=== PATIENT | male | born 1940 | race Caucasian/White ===

== ENCOUNTER 2017-01-04 08:42 | Emergency (ER) | payer OTHER, BC ==
[~2017-01-04] VITALS: Ht 172.7 cm; Wt 81.7 kg
[2017-01-04] MEDS ORDERED: LIPITOR 20 MG T20 M1 PO (09:07)
[2017-01-04] MEDS ORDERED: LEVITRA20 MG PO (09:07)
[2017-01-04] MEDS ORDERED: DEPO-TESTO200 MG/1 M IM (09:08)
[2017-01-04] MEDS ORDERED: VITAMIN D1000 UNI1 PO (09:09)
[2017-01-04] MEDS ORDERED: BYSTOLIC 5 MG5 M1 PO (09:09)
[2017-01-04] MEDS ORDERED: FISH OIL 1,001000 M2 PO (09:09)
[2017-01-04] MEDS ORDERED: VITAMINC500 PO (09:09)
[2017-01-04] MEDS ORDERED: ASPIR 8181 MG PO (09:09)
[2017-01-04 09:36] LABS: ABSOLUTE NEUTROPHILS 4.5 thou/uL (1.4-8.2); BASOPHILS 0.6 % (0.0-2.0); EOSINOPHILS 4.2 % (0.0-3.0); HEMATOCRIT 51.6 % (42.0-52.0); HEMOGLOBIN 17.4 gm/dL (14.0-18.0); LYMPHOCYTES 13.9 % (24.0-44.0); MCH 31.9 pg (26.0-34.0); MCHC 33.6 g/dL (28.0-37.0); PLATELET COUNT 140 thou/uL (150-400); POLYS 71.3 % (36.0-66.0); RBC 5.44 mil/uL (4.50-6.00); RDW 15.5 % (10.5-14.5); WBC 6.3 thou/uL (4.0-11.0)
[2017-01-04 09:38] LABS: MANUAL DIFF NO
[2017-01-04 09:42] LABS: CREATININE 0.8 mg/dL (0.6-1.3); POTASSIUM 3.8 mmol/L (3.5-5.1)
[2017-01-04] MEDS ORDERED: AZITHROMYCIN 2250 MG PO (10:07)
[2017-01-04 10:22] VITALS: BP 144/74
== END 2017-01-04 10:23 | disposition home or self-care (01) ==
LOC: ER 08:42
PROVIDERS: Emergency Medicine
DX: J18.9 Pneumonia, unspecified organism (principal); R04.2 Hemoptysis; Z86.2 Personal history of diseases of the blood and blood-forming organs and certain disorders involving the immune mechanism; Z90.89 Acquired absence of other organs; Z95.5 Presence of coronary angioplasty implant and graft; Z77.22 Contact with and (suspected) exposure to environmental tobacco smoke (acute) (chronic)

== ENCOUNTER → 2017-04-01 | Outpatient (CLI) | payer OTHER, BC ==
[~2017-04-01] MED LIST: ASPIR 8181 MG PO; AZITHROMYCIN 2250 MG PO; BYSTOLIC 5 MG5 M1 PO; DEPO-TESTO200 MG/1 M IM; FISH OIL 1,001000 M2 PO; LEVITRA20 MG PO; LIPITOR 20 MG T20 M1 PO; VITAMIN D1000 UNI1 PO; VITAMINC500 PO
== END ==
LOC: MRI 12:23
DX: M75.52 Bursitis of left shoulder (principal)

== ENCOUNTER → 2019-02-23 | Outpatient (CLI) | payer OTHER, BC ==
[~2019-02-23] VITALS: Ht 172.7 cm; Wt 78.0 kg
[~2019-02-23] MED LIST changes: +PRESERVISION A1 EAC2 PO
[2019-02-23 10:31] VITALS: BP 134/63
--- NOTE | 2019-02-23 17:26 | CATHLAB ---
[facility] [address] [place] [address] INVASIVE PROCEDURE REPORT Name: GLEN CARRASCO Room #: REG [place]#: [id number] ������������� Admission: 02/23/19 ������������� Attend Phys: Federico Walter, Discharge: ��� ������������� ��� Date of : 44 Date of Service: 02/23/19 1726 �� Report #: [id number] �������� ��������������������������������������������[id number] THIS REPORT FOR: //name// APPROVED REPORT Study performed: 02/23/2019 12:52:32 Patient Details Patient Status: Out-Patient Room #: The patient is a 78 year-old male Event Personnel Federico Walter Scrap Breaker, Herbert Burgos RN, Tiffanie Rivers BODY MAKER Scrub, Ninoska Gloria RTR, BODY MAKER Monitor Procedures Performed Art Access - R femoral artery* Left Heart Cath w/or w/o Coronaries [id number] [facility] Unilateral Extremity Angio [id number] UEA Aortogram Abdominal Peripheral Angio 985808 02069 Initial Mod Sed Same Phys/QHP Gr5y 916983 08885 Mod Sed Same Phys/QHP Ea 413152 Hemostasis w/ Mynx Indication Chest pain Procedure Narrative The Right Groin^ was infiltrated with 1% Lidocaine subcutaneous anesthesia. A PINNACLE 6FR Sheath #[id number] sheath was inserted into the RFA^. Coronary angiography was performed using coronary diagnostic catheters. The right coronary system was accessed and visualized with a JR4 catheter. The left coronary system was accessed and visualized with a JL4 catheter. The left ventricle was accessed and visualized with a pigtail catheter. Left ventriculogram was performed in 30 degree projection. An aortogram of the abdominal aorta was performed. Closure device was deployed with a 6 Fr Mynx. There was no hematoma. Intraoperative Conscious Sedation Sedation start time: 13:12 Case end Time: 13:51 Fentanyl 50 mcg Versed 1 mg Fluoro Time: 1.54 minutes Dose: DAP 4000.30 cGycm2 471 mGy Contrast Type and Amount: Omnipaque 100 ml [facility] [address] [address] INVASIVE PROCEDURE REPORT Name: GLEN CARRASCO Room #: REG [facility]#: [id number] ������������� Admission: 02/23/19 ������������� Attend Phys: Federico Walter, Discharge: ��� ������������� ��� Date of : 44 Date of Service: 02/23/19 1726 �� Report #: [id number] �������� ��������������������������������������������[id number] Hemodynamics The aortic pressure is 134/63 mmHg with a mean of 95 mmHg. The left ventricular pressure is 139/14 mmHg with a mean of mmHg. The left ventricular end diastolic pressure is 25 mmHg. Conclusion #1 left main mildly calcified giving rise to an LAD and an occluded circumflex previously noted #2 LAD extensively calcified proximally. With 70-75% eccentric proximal and then a more distal 70% eccentric lesion then a well preserved distal to thirds of this vessel extends around the apex. This shows minimal progression since the catheter of 2013. #3 circumflex OM is flush occluded and filled via bridging collaterals and right to left collateralization #4 anatomically dominant right coronary artery with moderate diffuse disease moderate in-stent restenosis and a mid vessel of 60% better preserved distal vessel providing some collateral filling to the circumflex OM system which is occluded. #5 normal left jugular size with subtle inferior lateral wall leg EF 50% #6 right lower extremity angiography reveals mildly disease iliac system common femoral 30-40% in the more distal right SFA has a 60% irregular mildly calcified stenosis which is overestimated by Doppler. Giving rise to 2 vessel runoff. Condition plan: We'll continue aggressive risk factor modification. Been subtle progression of proximal LAD with extensively calcified vessel. Would continue to treat this medically for now. We'll opt for nuclear stress testing looking to quantify amount of anterior wall ischemia next 3-6 months. Patient remains relatively asymptomatic except for one episode we'll continue medical therapy follow-up in 3 months. ��������������������������������������������� <ELECTRONICALLY SIGNED> ���������������������������������������� By: Federico Walter MD, FACC ��������������������������������������������� 02/23/191725 25 25 Federico Walter MD, FACC /INF
--- NOTE | 2019-02-24 08:06 | EKG ---
[place] [address] 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: Codie ESCUEDRO : 1940 Requested By: Federico Walter Order Number: [id number] MD: Cirilo Kumar Measurements Intervals [place] Rate: 80 P: 65 WI: 160 QRS: -24 QRSD: 112 T: QT: 390 QTc: 450 Interpretive Statements Sinus rhythm Inferior infarct, old Nonspecific T wave abnormality Compared to ECG 08/16/1995 08:12:00 No significant changes Electronically Signed On 02-24-2019 8:06:04 CDT by Cirilo Kumar [email or web address] ��������������������������������������������� <ELECTRONICALLY SIGNED> ���������������������������������������� By: Cirilo Kumar MD, [facility] ��������������������������������������������� 02/24/19805 0957 Cirilo Kumar MD, [facility] /EPI
== END | disposition home or self-care (01) ==
LOC: CATH 07:29
DX: I25.10 Atherosclerotic heart disease of native coronary artery without angina pectoris (principal); T82.855A Stenosis of coronary artery stent, initial encounter; I10 Essential (primary) hypertension; J44.9 Chronic obstructive pulmonary disease, unspecified; E78.5 Hyperlipidemia, unspecified; I73.9 Peripheral vascular disease, unspecified; Z95.5 Presence of coronary angioplasty implant and graft; F17.210 Nicotine dependence, cigarettes, uncomplicated; Z85.038 Personal history of other malignant neoplasm of large intestine; Z90.49 Acquired absence of other specified parts of digestive tract; Z98.890 Other specified postprocedural states; Z79.899 Other long term (current) drug therapy; Z79.82 Long term (current) use of aspirin

== ENCOUNTER → 2020-06-01 | Outpatient (CLI) | payer OTHER, BC ==
[~2020-06-01] VITALS: Ht 172.7 cm; Wt 77.1 kg
[~2020-06-01] MED LIST changes: -LIPITOR 20 MG T20 M1 PO; +LIPITOR80 MG PO; +VITAMIN D350 MC3 PO
--- NOTE | ~2020-06-01 | P ---
[facility] [place] [address] PROCEDURE REPORT Name: GLEN CARRASCO Room #: REG [facility]#: [id number] Admission: 06/01/20 Attend Phys: Jose Corral MD Discharge: Date of : 44 Report #: [id number] THIS REPORT FOR: cc: Howard Calix MD, Bernard O. MD Thesing,Jose Phillips MD ~ CC: Howard Corral OUTPATIENT ERCP REPORT BRIEF HISTORY: The patient is a 80-year-old male who has a prior history of colon cancer and also duodenal adenomas, status post endoscopic papillectomy for duodenal adenoma with findings of a filling defect in the common bile duct on CT and also MRCP. He has been asymptomatic with regard to right upper quadrant symptoms or jaundice. ERCP and stone extraction was recommended. PREOPERATIVE DIAGNOSIS: Choledocholithiasis. POSTOPERATIVE DIAGNOSES: 1. Choledocholithiasis. 2. Status post endoscopic papillectomy for duodenal adenoma. ANESTHESIA: General anesthesia with intubation. ESTIMATED BLOOD LOSS: None. PROCEDURE: ERCP with stone extraction. FINDINGS: Prior to this general anesthesia, the procedure of ERCP, potentially sphincterotomy and stone extraction were discussed with the patient as well as potential risks and its complications. He indicates he understands and desires that we proceed. DESCRIPTION OF PROCEDURE: The patient was taken to the Operating Suite and induced with general anesthesia and intubated and then placed in the prone position. Subsequently, the Olympus side-viewing endoscope was inserted in the cervical esophagus and advanced through the esophagus, stomach, across the pylorus into the duodenum. The second portion of duodenum was entered and the previous site of papillectomy was identified. Both the common duct orifice and the pancreatic duct orifice were seen. We then cannulated the common bile duct orifice. Injection of contrast revealed a filling defect as noted on the MRCP that was oblong about 1.2 cm in length. We inserted the guidewire deep into the biliary tree. Clearly, the remainder of the biliary tree did not reveal any other filling defects. There was mild dilation of the intrahepatic and extrahepatic biliary tree. In addition, there was filling into the cystic duct [address] [address] PROCEDURE REPORT Name: DANILOGLEN INO Room #: REG [facility]#: [id number] Admission: 06/01/20 Attend Phys: Jose Corral MD Discharge: Date of : 44 Report #: [id number] and into the gallbladder. We then inserted a 2.5 cm basket and made several passes. Initially, we just retrieved globs of mucus. However, on another pass, there was resistance as we pulled the basket through the common bile duct orifice. Multiple fragments of yellowish and blackish stone material were obtained. We then reinserted the catheter and made several more passes and finally we entrapped the large stone. It was 1.2 cm in length and probably about 6-7 mm in width. With gentle traction, it came through the orifice into the duodenum. We then obtained additional filling of the biliary tree, which was unremarkable and no further filling defects were seen. Scope was withdrawn. The patient tolerated the procedure well. CONDITION OF THE PATIENT UPON DISCHARGE: The patient was taken to recovery room in good condition. After recovering from anesthesia he will be discharged home. INSTRUCTIONS TO THE PATIENT AND FAMILY AT THE TIME OF DISCHARGE: Interestingly, he was found to have evidence of choledocholithiasis for evaluation of right lower quadrant pain, which has subsequently resolved. He was essentially asymptomatic. We will have him return for followup in the office. We will discuss the merits of cholecystectomy. Also, we will have him obtain an ultrasound of the gallbladder. The CT and MRCP did not reveal evidence of cholelithiasis. We will obtain a gallbladder ultrasound for further evaluation. Since he did have cholelithiasis, cholecystectomy may be a consideration. In addition, we will follow up on liver function studies. In addition, give consideration to followup endoscopy in view of his history of a duodenal adenoma and previous papillectomy. By: 1153 [id number] Jose Corral MD /sebastian
== END | disposition home or self-care (01) ==
LOC: GI 09:03
PROVIDERS: ATTEND Specialist
DX: K80.50 Calculus of bile duct without cholangitis or cholecystitis without obstruction (principal); E78.00 Pure hypercholesterolemia, unspecified; I25.10 Atherosclerotic heart disease of native coronary artery without angina pectoris; J44.9 Chronic obstructive pulmonary disease, unspecified; Z87.891 Personal history of nicotine dependence; Z79.899 Other long term (current) drug therapy; Z98.890 Other specified postprocedural states
CPT/HCPCS: 62110; 62900; 70005

== ENCOUNTER → 2020-12-25 | Outpatient (CLI) | payer OTHER, BC ==
[~2020-12-25] MED LIST changes: +PLAVIX 75 MG TA75 MG PO
== END ==
LOC: CAT 10:30
PROVIDERS: ATTEND Family Medicine
DX: Z12.2 Encounter for screening for malignant neoplasm of respiratory organs (principal); I70.0 Atherosclerosis of aorta; F17.210 Nicotine dependence, cigarettes, uncomplicated

== ENCOUNTER → 2021-01-08 | Outpatient (CLI) | payer OTHER, BC | LOC: SJCVC 14:50 → SJCVCIMAG 14:50 | PROVIDERS: ATTEND Internal Medicine Cardiovascular Disease | DX: I65.23 Occlusion and stenosis of bilateral carotid arteries (principal); E11.51 Type 2 diabetes mellitus with diabetic peripheral angiopathy without gangrene; I70.203 Unspecified atherosclerosis of native arteries of extremities, bilateral legs; I77.9 Disorder of arteries and arterioles, unspecified; I25.10 Atherosclerotic heart disease of native coronary artery without angina pectoris; I10 Essential (primary) hypertension; E78.00 Pure hypercholesterolemia, unspecified; J44.9 Chronic obstructive pulmonary disease, unspecified; R53.83 Other fatigue; M79.604 Pain in right leg; M79.605 Pain in left leg; F17.210 Nicotine dependence, cigarettes, uncomplicated; Z90.49 Acquired absence of other specified parts of digestive tract; Z98.61 Coronary angioplasty status; Z79.82 Long term (current) use of aspirin; Z79.899 Other long term (current) drug therapy ==

== ENCOUNTER → 2021-01-10 | Outpatient (CLI) | payer OTHER, BC ==
[~2021-01-10] MED LIST changes: -PLAVIX 75 MG TA75 MG PO
== END ==
LOC: SJCVCIMAG 11:23
PROVIDERS: ATTEND Internal Medicine Cardiovascular Disease
DX: I49.3 Ventricular premature depolarization (principal); I49.1 Atrial premature depolarization; R00.0 Tachycardia, unspecified; I25.10 Atherosclerotic heart disease of native coronary artery without angina pectoris; E78.5 Hyperlipidemia, unspecified; I10 Essential (primary) hypertension; I73.9 Peripheral vascular disease, unspecified; J44.9 Chronic obstructive pulmonary disease, unspecified; F17.200 Nicotine dependence, unspecified, uncomplicated; Z79.82 Long term (current) use of aspirin; Z79.899 Other long term (current) drug therapy

== ENCOUNTER → 2021-01-17 | Outpatient (CLI) | payer OTHER, BC ==
[~2021-01-17] VITALS: Ht 172.7 cm; Wt 78.9 kg
[~2021-01-17] MED LIST changes: +PLAVIX 75 MG TA75 MG PO
[2021-01-17 07:19] VITALS: BP 126/70
[2021-01-17 07:31] LABS: HEMATOCRIT 43.2 % (42.0-52.0); HEMOGLOBIN 14.4 gm/dL (14.0-18.0); MCH 33.1 pg (26.0-34.0); MCHC 33.4 g/dL (28.0-37.0); MCV 99.1 fL (80.0-100.0); RBC 4.36 mil/uL (4.50-6.00); RDW 15.4 % (10.5-14.5); WBC 6.6 thou/uL (4.0-11.0)
[2021-01-17 07:41] LABS: CREATININE 0.9 mg/dL (0.7-1.3); POTASSIUM 3.5 mmol/L (3.5-5.1)
--- NOTE | 2021-01-17 08:55 | EKG ---
[address] [place] [address] ELECTROCARDIOGRAM REPORT Name: GLEN CARRASCO [facility]: REG [id number]: 01/17/21 Attend Phys: Cesar Winters MD Discharge: Date of : 44 Report #: [id number] [facility] Test Date: 2021-01-17 Test Time: 07:57:54 Pat Name: GLEN CARRASCO Department: Room: Gender: M Cardiac Surgeon: daly : 1940 Requested By: Federico Walter Order Number: [id number] MD: Cirilo Kumar Measurements Intervals [place] Rate: 79 P: 55 VT: 156 QRS: -40 QRSD: 84 T: QT: 530 QTc: 608 Interpretive Statements Sinus rhythm Inferior infarct, old Prolonged QT interval Compared to ECG 02/23/2019 09:57:46 Prolonged QT interval now present Electronically Signed On 01-17-2021 8:55:05 CDT by Cirilo Kumar [email or web address] <ELECTRONICALLY SIGNED> By: Cirilo Kumar MD, [facility] 01/17/21 [phone] Cirilo Kumar MD, FACC /EPI
--- NOTE | 2021-01-18 15:11 | CATHLAB ---
[facility] [place] [address] INVASIVE PROCEDURE REPORT Name: GLEN CARRASCO [id number] Admission: 01/17/21 Attend Phys: Cesar Winters MD Discharge: Date of : 44 Report #: [id number] THIS REPORT FOR: cc: Daniel Rose MD, Neal A. MD Mancuso, Gerald M. MD [facility] ~ APPROVED REPORT Study performed: 01/17/2021 09:34:40 Patient Details Patient Status: Out-Patient Room #: The patient is a 80 year-old male Event Personnel Federico Walter Technical Staff Assistant, Rosie Betts RTR Monitor, Marcello Santana RTR Scrub, Jacqueline Bauman RN RN, Marc Falcon RN vessel traffic officer Performed Left Heart Cath w/or w/o Coronaries [id number] [facility] Hemostasis w/ Mynx 81335 Initial Mod Sed Same Phys/QHP Gr5y 194380 84640 Mod Sed Same Phys/QHP Ea 785128 Procedure Narrative The was infiltrated with 1% Lidocaine subcutaneous anesthesia. A PINNACLE 6FR Sheath #[id number] sheath was inserted into the LFA^. Coronary angiography was performed using coronary diagnostic catheters. The right coronary system was accessed and visualized with a JR4 catheter. The left coronary system was accessed and visualized with a JL4 catheter. The left ventricle was accessed and visualized with a PIGTAIL catheter. Closure device was deployed with a Fr [id number] 6/7F #[id number]. The patient tolerated the procedure well and there were no complications associated with the procedure. There was no hematoma. Intraoperative Conscious Sedation Sedation start time: 8:30 Case end Time: 10:51 Fentanyl 125 mcg Versed 2.5 mg Sedation and contrast totals are a combined total from both a runoff procedure and a heart cath procedure. Fluoro Time: 10.13 minutes [facility] [place] [address] INVASIVE PROCEDURE REPORT Name: GLEN CARRASCO Room #: REG [facility]#: [id number] Admission: 01/17/21 Attend Phys: Cesar Winters, Discharge: Date of : 44 Report #: [id number] Dose: DAP 55951.40 cGycm2 711 mGy Contrast Type and Amount: Visipaque 132 ml Hemodynamics The aortic pressure is 139/52 mmHg with a mean of 63 mmHg. The left ventricular pressure is 181/5 mmHg with a mean of mmHg. The left ventricular end diastolic pressure is 23 mmHg. PCI Technique Lesion Percutaneous coronary intervention was performed on the Superficial Femoral. Conclusion #1. Normal left ventricular size and systolic function lower limits of normal EF 50% subtle inferior apical wall leg. #2 left main mildly calcified giving rise to LAD and circumflex. #3 the LAD has heavy calcification. An eccentric 70 to 75% proximal lesion after the first septal warehouse clerk and then a eccentric 75% lesion within a well-preserved LAD around the apex. This is not showing significant progression since cardiac catheterization of 2019. Stress testing not showing ischemic response in anterior wall. #4 circumflex OM is occluded and collaterally fills via left to left and right to left collateralization #5 dominant right coronary heavily calcified in addition with a long mid vessel narrowing of 60 to 70% possible area of prior stent placement. The PDA NANDO are preserved and some collateral filling via the posterior lateral branch to the circumflex OM system which is occluded Recommendations and plan: Continue aggressive risk factor modification. Tandem proximal LAD lesions have not significantly progressed. Stress testing currently not showing anterior wall ischemia. Could be amenable to intervention although heavily calcified. We will continue to treat medically and serial stress testing. <ELECTRONICALLY SIGNED> By: Federico Walter MD, FACC 01/18/21 1511 151 151 Federico Walter MD, FACC /INF
== END | disposition home or self-care (01) ==
LOC: CATH 06:26
PROVIDERS: ATTEND Nuclear Medicine Nuclear Cardiology
DX: I25.10 Atherosclerotic heart disease of native coronary artery without angina pectoris (principal); I70.211 Atherosclerosis of native arteries of extremities with intermittent claudication, right leg; I70.1 Atherosclerosis of renal artery; I10 Essential (primary) hypertension; E78.5 Hyperlipidemia, unspecified; E78.00 Pure hypercholesterolemia, unspecified; J44.9 Chronic obstructive pulmonary disease, unspecified; D64.9 Anemia, unspecified; F17.210 Nicotine dependence, cigarettes, uncomplicated; Z98.890 Other specified postprocedural states; Z79.899 Other long term (current) drug therapy; Z85.038 Personal history of other malignant neoplasm of large intestine; Z90.49 Acquired absence of other specified parts of digestive tract

== ENCOUNTER → 2021-06-20 | Outpatient (CLI) | payer OTHER, BC | END | disposition home or self-care (01) | LOC: SJCVCIMAG 04-18 13:52 | PROVIDERS: ATTEND Nuclear Medicine Nuclear Cardiology | DX: I73.9 Peripheral vascular disease, unspecified (principal); I77.9 Disorder of arteries and arterioles, unspecified; I25.10 Atherosclerotic heart disease of native coronary artery without angina pectoris; I10 Essential (primary) hypertension; E78.00 Pure hypercholesterolemia, unspecified; J44.9 Chronic obstructive pulmonary disease, unspecified; E11.9 Type 2 diabetes mellitus without complications; F17.210 Nicotine dependence, cigarettes, uncomplicated; Z79.82 Long term (current) use of aspirin; Z79.899 Other long term (current) drug therapy ==